=== PATIENT | male | born 1985 | race Caucasian/White ===

== ENCOUNTER 2019-04-17 04:15 | Emergency (ER) | payer MEDICAID ==
[~2019-04-17] VITALS: Ht 157.5 cm; Wt 108.4 kg
[2019-04-17 04:22] VITALS: Ht 157.5 cm; Wt 108.4 kg
[2019-04-17 04:54] VITALS: BP 137/85
== END 2019-04-17 04:54 | disposition left against medical advice (07) ==
LOC: ED 04:15
DX: L25.9 Unspecified contact dermatitis, unspecified cause (principal)